=== PATIENT | male | born 1970 | race Caucasian/White ===

== ENCOUNTER 2019-10-27 05:45 | Day surgery (SDC) | payer OTHER ==
[2019-10-27] MEDS ORDERED: PERCOCET 5-3251 EACH PO (12:39)
[2019-10-27] MEDS ORDERED: KETO10TA2 PO (12:39)
[2019-10-27] MEDS ORDERED: NEURONTIN300 MG PO (12:40)
[2019-10-27] MEDS ORDERED: RECTICARE30 GM TOP (12:40)
== END 2019-10-27 15:50 | disposition home or self-care (01) ==
LOC: CIR.AMB 05:45 → ADM 08:45 → CIR.AMB 13:00
DX: K64.8 Other hemorrhoids (principal); K62.5 Hemorrhage of anus and rectum; Z80.0 Family history of malignant neoplasm of digestive organs; K60.0 Acute anal fissure; K62.89 Other specified diseases of anus and rectum